=== PATIENT | female | born 1980 | race Caucasian/White ===

== ENCOUNTER 2016-08-25 11:26 | Emergency (ER) | payer BC, OTHER ==
[~2016-08-25] VITALS: Ht 157.5 cm; Wt 80.5 kg
[~2016-08-25 11:26] MED LIST: ATIVAN 0.50.5 MG/TAB PO; CELEXA10 MG PO; FLAGYL500 MG PO; FLEXERIL 1010 MG/TAB PO; HORMONE PATCH; MOTRIN 400400 MG/TAB PO; NAPROSYN500 MG PO; NO HOME MEDICATIONS; NORCO 325 MG-51 TAB PO; PERCOCET 325 MG1 TA2 PO; PHENERGAN 25 TA25 MG PO; PREMARIN .3MG0.3 MG PO; PREMARIN 1.251.25 MG PO; PROZAC 10MG10 MG PO; ULTRAM 50MG TAB50 MG PO; ZOFRAN ODT4 MG PO; ZYRTEC 10MG10 MG PO
[2016-08-25 11:34] VITALS: TEMP 98.5
[2016-08-25] MEDS ORDERED: VITAMIN D1000 IU (11:42)
[2016-08-25] MEDS ORDERED: IRON325 M2 PO (11:42)
[2016-08-25] MEDS ORDERED: FLAGYL500 MG PO (11:43)
[2016-08-25] MEDS ORDERED: IMODIUM 2MG CAPS2 MG PO (11:44)
[2016-08-25 12:32] LABS: BASO % 0.6 % (0.0-2.0); EOS # 0.4 (0.0-0.7); EOS % 5.6 % (0-4.0); GRAN # 3.9 (1.4-6.5); GRAN % 59.9 % (42.2-75.2); HEMATOCRIT 34.5 % (37.0-47.0); HEMOGLOBIN 10.8 g/dl (12.5-16.0); LYMPH # 1.8 (1.2-3.4); LYMPH % 27.5 % (20.0-51.0); MEAN CELL VOLUME 77 fl (80.0-100.0); MEAN CORPUSCULAR HEMOGLOBIN 24 pg (27.0-31.0); MEAN CORPUSCULAR HGB CONC 31 g/dl (33.0-37.0); MEAN PLATELET VOLUME 9.7 fl (7.4-10.4); MONO # 0.4 (0.1-0.6); MONO % 5.9 % (1.7-9.3); PLATELET COUNT 273 K/mm3 (130-400); RED BLOOD COUNT 4.48 M/mm3 (4.10-5.30); REDCELL DISTRIBUTION WIDTH-CV 14.5 % (11.5-14.5); WHITE BLOOD COUNT 6.6 K/mm3 (4.8-10.8)
[2016-08-25 12:42] LABS: ADJUSTED CALCIUM 9.3 mg/dL (8.4-10.2); ALBUMIN 3.9 gm/dL (3.5-5.0); BILIRUBIN,TOTAL 0.5 mg/dL (0.0-1.0); CALCIUM 9.2 mg/dL (8.4-10.2); CREATININE, serum 0.98 mg/dL (0.52-1.25); POTASSIUM 3.8 mmol/L (3.4-5.0); TOTAL PROTEIN 7.8 gm/dL (6.4-8.2)
[2016-08-25] MEDS ORDERED: VANCOCIN H125 MG/CAP PO (13:32)
[2016-08-25] MEDS ORDERED: ZOFRAN ODT4 MG PO (14:05)
[2016-08-25 14:42] VITALS: BP 103/74; PULSE 79
== END 2016-08-25 14:45 | disposition home or self-care (01) ==
LOC: COL.ER 11:26
PROVIDERS: Emergency Medicine
DX: A04.7 Enterocolitis due to Clostridium difficile (principal); R11.0 Nausea
CPT/HCPCS: J2405; J7030

== ENCOUNTER → 2018-04-16 | Outpatient (CLI) | payer BC, OTHER ==
[~2018-04-16] MED LIST changes: +IMODIUM 2MG CAPS2 MG PO; +IRON325 M2 PO; +VANCOCIN H125 MG/CAP PO; +VITAMIN D1000 IU
== END ==
LOC: COL.RAD 10:00
DX: M25.571 Pain in right ankle and joints of right foot (principal)
CPT/HCPCS: J0330; J2405; J2704; J3010; J3301; Q9967

== ENCOUNTER → 2019-08-15 | Outpatient (CLI) | payer BC, OTHER | LOC: COL.RAD 08:14 | DX: R68.81 Early satiety (principal) | CPT/HCPCS: A9541 ==